=== PATIENT | male | born 2000 | race Caucasian/White ===

== ENCOUNTER 2024-04-10 21:47 | Emergency (ER) | payer OTHER ==
[~2024-04-10] VITALS: Ht 193 cm; Wt 138.3 kg
[2024-04-10 21:49] VITALS: BP 135/94; PULSE 72; RESP 20; TEMP 96.8; O2SAT 100
[2024-04-10 22:04] VITALS: BP 135/94; PULSE 72; RESP 20; TEMP 96.8; O2SAT 100
[2024-04-10] MEDS: KETOROLAC 60 MG/2 ML VIAL IM ONE (22:10)
[2024-04-10] MEDS: SILVER SULFADIAZINE 1% 50 GM JAR TP ONE (22:10)
[2024-04-10] MEDS ORDERED: IBUP-2213 PO (22:23)
[2024-04-10] MEDS ORDERED: ACET-8905 PO ×2 (22:23→22:25)
== END 2024-04-10 22:30 | disposition home or self-care (01) ==
LOC: MED 21:47
DX: T23.232A Burn of second degree of multiple left fingers (nail), not including thumb, initial encounter (principal); R03.0 Elevated blood-pressure reading, without diagnosis of hypertension; F17.200 Nicotine dependence, unspecified, uncomplicated; X08.8XXA Exposure to other specified smoke, fire and flames, initial encounter; Y93.89 Activity, other specified; Y92.89 Other specified places as the place of occurrence of the external cause; Y99.8 Other external cause status
CPT/HCPCS: 16020; 96372; 99283; J1885